=== PATIENT | female | born 1980 | race Caucasian/White ===

== ENCOUNTER 2017-02-04 15:21 | Observation (INO) | payer OTHER ==
[2017-02-04 15:21] VITALS: BMI 34.4
--- NOTE | 2017-02-04 16:19 | ED PDOC ---
HPI: Abdomen Chief Complaint (Provider): abdominal pain History Per: Patient History/Exam Limitations: no limitations Onset/Duration Of Symptoms: Days (x2 weeks) Current Symptoms Are (Timing): Intermittent Episodes Associated Symptoms: Fever, Nausea. denies: Vomiting, Diarrhea, Constipation Abnormal Vaginal Bleeding: No <Funmilayo Nobles - Last Filed: 02/04/17 16:16> <Mary Herman - Last Filed: 02/04/17 17:18> Time Seen by Provider: 02/04/17 15:45 Chief Complaint (Nursing): Abdominal Pain Additional Complaint(s): Ryne Freitas is a 36 year old female, with no previous medical history, was sent to the ED be her PMD for the evaluation of abdominal pain with associated symptoms of subjective fevers, dyuria and nausea that is ongoing intermittently for two weeks. Patient denies any vomiting, constipation , diarrhea, hematuria, vaginal discharge/bleeding. She denies taking any medication prior to arrival. PMD: Jean Rollins MD (Funmilayo Nobles) Past Medical History Reviewed: Historical Data, Nursing Documentation, Vital Signs - Medical History PMH: No Chronic Diseases - Surgical History Surgical History: (x 1) - Family History Family History: States: Unknown Family Hx <Funmilayo Nobles - Last Filed: 02/04/17 16:16> <Mary Herman - Last Filed: 02/04/17 17:18> Vital Signs: Last Vital Signs Temp 98.9 F 02/04/17 15:27 Pulse 74 02/04/17 15:27 Resp 16 02/04/17 15:27 BP 125/76 02/04/17 15:27 Pulse Ox 98 02/04/17 16:40 - Home Medications Home Medications: Ambulatory Orders Medication Instructions Recorded Vitamins8 [Classic 1 tab PO DAILY 08/15/15 ] Acetaminophen [Tylenol 325mg tab] 650 mg PO Q6 PRN #0 tab 08/16/15 Insulin Human NPH [Humulin N] 34 units SC DAILY #0 vial 08/16/15 Insulin Human Regular [HumuLIN R] 14 units SC 2000 #0 ml 08/16/15 Multivit/Folic Acid/I 1 tab PO DAILY #0 tab 08/16/15 [] - Allergies Allergies/Adverse Reactions: Allergies Allergy/AdvReac Type Severity Reaction Status Date / Time No Known Allergies Allergy Verified 02/04/17 15:27 Review of Systems ROS Statement: Except As Marked, All Systems Reviewed And Found Negative Constitutional: Positive for: Fever (subjective) Gastrointestinal: Positive for: Nausea, Abdominal Pain. Negative for: Vomiting , Diarrhea, Constipation Genitourinary Female: Positive for: Dysuria. Negative for: Hematuria, Vaginal Discharge, Vaginal Bleeding <Funmilayo Nobles - Last Filed: 02/04/17 16:16> Physical Exam - Reviewed Nursing Documentation Reviewed: Yes Vital Signs Reviewed: Yes - Physical Exam Appears: Positive for: Well, Non-toxic, No Acute Distress Skin: Positive for: Normal Color, Warm, Dry Cardiovascular/Chest: Positive for: Regular Rate, Rhythm Respiratory: Positive for: Normal Breath Sounds Gastrointestinal/Abdominal: Positive for: Soft, Tenderness (RLQ), Rebound (RLQ) . Negative for: Distended, Guarding Neurologic/Psych: Positive for: Alert, Oriented <Funmilayo Nobles - Last Filed: 02/04/17 16:16> - ECG O2 Sat by Pulse Oximetry: 98 (RA) Pulse Ox Interpretation: Normal <Funmilayo Nobles - Last Filed: 02/04/17 16:16> - Laboratory Results Result Diagrams: 02/04/17 16:48 <Mray Herman - Last Filed: 02/04/17 17:18> Medical Decision Making <NoblesFunmilayo F - Last Filed: 02/04/17 16:16> <Mary Herman - Last Filed: 02/04/17 17:18> Medical Decision Making: Initial Impression: Appendicitis, Ovarian torsion, Ovarian cyst Inital Plan: * CT Abd/Pelvis IV contrast * Labs * Urine * Urine dipstick * PTT * PT * Morphine 2Mg IV * IV NS 1,000 ml at 1,000 mls/hr * Ondansetron 4Mg IV * Urine analysis * Ultrasound pelvis/transvag * Re-eval Scribe Attestation: Documented by Funmilayo Larsen, acting as a scribe for Funmilayo Nobles MD. Provider Scribe Attestation: All medical record entries made by the Scribe were at my direction and personally dictated by me. I have reviewed the chart and agree that the record accurately reflects my personal performance of the history, physical exam, medical decision making, and the department course for this patient. I have also personally directed, reviewed, and agree with the discharge instructions and disposition. (Funmilayo Nobles)
[2017-02-04] MEDS ORDERED: Sodium Chloride 0.9% 1,000 ML IV STA (16:23)
[2017-02-04 16:50] LABS: RBC URINE 2 /hpf (0-3); URINE BACTERIA RARE (<OCC); URINE BILIRUBIN NEGATIVE (NEGATIVE); URINE BLOOD NEGATIVE (NEGATIVE); URINE COLOR STRAW (YELLOW); URINE GLUCOSE (UA) NEG (Normal); URINE KETONE NEGATIVE (NEGATIVE); URINE LEUKOCYTE ESTERASE NEG Leu/uL (Negative); URINE PROTEIN NEGATIVE (NEGATIVE); URINE UROBILINOGEN 0.2-1.0 mg/dL (0.2-1.0); WBC URINE 1 /hpf (0-5)
[2017-02-04 16:57] LABS: BASO # 0.1 K/uL (0.0-0.2); BASO % 0.7 % (0.0-2.0); EOS # 0.2 K/uL (0.0-0.7); EOS % 1.7 % (0.0-4.0); HEMATOCRIT 38.2 % (34.0-47.0); LYMPH # 1.7 K/uL (1.0-4.3); LYMPH % 17.6 % (20.0-40.0); MEAN CELL VOLUME 78.6 fl (81.0-99.0); MEAN CORPUSCULAR HGB CONC 31.8 g/dL (33.0-37.0); MEAN PLATELET VOLUME 9.3 fl (7.2-11.7); MONO # 0.5 K/uL (0.0-0.8); MONO % 5.5 % (0.0-10.0); NEUT % 74.5 % (50.0-75.0); RED CELL DISTRIBUTION WIDTH 15.1 % (11.5-14.5); WHITE BLOOD COUNT 9.4 K/uL (4.8-10.8)
[2017-02-04] MEDS ORDERED: Sodium Chloride 0.9% 50 ML IV ONE (17:20)
[2017-02-04] MEDS ORDERED: Iohexol 300 100 ML IJ ONE (17:20)
--- NOTE | 2017-02-04 17:25 | ED PDOC ---
- Laboratory Results Result Diagrams: 02/04/17 16:48 02/04/17 16:48 - ECG O2 Sat by Pulse Oximetry: 98 (RA) Pulse Ox Interpretation: Normal Medical Decision Making Medical Decision Making: Patient signed out to provider at 0500 pending ER work-up and final disposition. Received endorsement from Dr. Nobles. - Scribe Attestation Documented by Eli Nichols acting as a scribe for Mary Herman MD. Provider Attestation All medical record entries made by the Scribe were at my direction and personally dictated by me. I have reviewed the chart and agree that the record accurately reflects my personal performance of the history, physical exam, medical decision making, and the department course for this patient. I have also personally directed, reviewed, and agree with the discharge instructions and disposition.
[2017-02-04 17:26] LABS: ALB/GLOB RATIO 1.5 (1.0-2.1); ALKALINE PHOSPHATASE 55 U/L (38-126); ALT/SGPT 37 U/L (9-52); AST/SGOT 26 U/L (14-36); BILIRUBIN,TOTAL 0.1 mg/dl (0.2-1.3); BLOOD UREA NITROGEN 9 mg/dl (7-17); CALCIUM 9.4 mg/dL (8.4-10.2); CARBON DIOXIDE 25 mmol/L (22-30); CHLORIDE 104 mmol/L (98-107); GFR AFRICAN-AMERICAN > 60; GLUCOSE,RANDOM 137 mg/dL (65-105); PARTIAL THROMBOPLASTIN TIME 29.9 Seconds (25.6-37.1); SODIUM 141 mmol/l (132-148); TOTAL PROTEIN 7.4 G/DL (6.3-8.2)
[2017-02-04 17:28] LABS: POTASSIUM 3.3 MMOL/L (3.6-5.0)
[2017-02-04] MEDS ORDERED: K-Lyte 25meq EF Tab PO ONE ×2 (17:38→18:43)
--- NOTE | 2017-02-04 18:29 | CT ---
PROCEDURE: CT Abdomen and Pelvis with contrast HISTORY: RLQ pain COMPARISON: None. TECHNIQUE: Contrast dose: 95 cc Omnipaque 300 Radiation dose: Total exam DLP = 762.26 mGy-cm. This CT exam was performed using one or more of the following dose reduction techniques: Automated exposure control, adjustment of the mA and/or kV according to patient size, and/or use of iterative reconstruction technique. FINDINGS: LOWER THORAX: Unremarkable. LIVER: Unremarkable. No gross lesion or ductal dilatation. GALLBLADDER AND BILE DUCTS: Unremarkable. PANCREAS: Unremarkable. No gross lesion or ductal dilatation. SPLEEN: Unremarkable. ADRENALS: Unremarkable. No mass. KIDNEYS AND URETERS: Unremarkable. No hydronephrosis. No solid mass. VASCULATURE: Unremarkable. No aortic aneurysm. BOWEL: Dilated proximal small bowel disproportionate to that seen distally. The transition point is in the right upper quadrant. No focal lesion or mass is identified. There is no evidence of intussusception. There are no secondary signs of closed loop obstruction. APPENDIX: Normal appendix. PERITONEUM: Trace free fluid identified in the pelvis/cul de sac. LYMPH NODES: Unremarkable. No enlarged lymph nodes. BLADDER: Unremarkable. REPRODUCTIVE: Unremarkable. BONES: No acute fracture. OTHER FINDINGS: None. IMPRESSION: Early, incomplete mid small bowel obstruction. Normal appendix.
--- NOTE | 2017-02-04 18:55 | US ---
HISTORY: RIGHT pelvic pain COMPARISON: CT abdomen and pelvis with contrast performed 02/04/17 TECHNIQUE: Transvaginal pelvic ultrasound FINDINGS: Examination markedly limited due to bowel gas. UTERUS: Measures 7.8 x 5.0 x 6.0 cm. Retroverted. ENDOMETRIUM: Measures 7 mm in diameter. CERVIX: Small fluid within the cervical canal. RIGHT OVARY: Not visualized. LEFT OVARY: Measures 2.3 x 1.9 x 1.7 cm. Blood flow is demonstrated. FREE FLUID: No significant free fluid noted. OTHER FINDINGS: None. IMPRESSION: Examination markedly limited due to bowel gas. The right ovary is not visualized. Small fluid within the cervix.
--- NOTE | 2017-02-04 19:13 | CP.PCM.HP ---
History of Present Illness - History of Present Illness History of Present Illness: CC: stomach pain HPI 36 year old female no past medical history, s/p 2 C/Sections presents with a 2 week history of on and off abdominal pain that acutely worsened today. Pain is mod to severe 8/10 waxing and waning, non radiating, sharp in nature and associated with nausea but no emesis. Last BM was yesterday, small, soft. Patient is comfortable at this time. CT showed partial SBO, surgery was consulted in ER. Dr. Rollins is PCP. ROS: per HPI, 12 systems reviewed and negative PMD: Dr. Rollins PMH: denies PSH: CSection FH: DM.HTN, LYMPHOMA SH: denies tobacco, ETOH, IVDU Allergies: NKDA Vitals: reviewed and currently stable Exam: GEN: WDWN, alert, cooperative HEENT: NCAT, PERRL, EOMI NECK: supple, no JVD, no lymphadenopathy CARDIAC: +S1S2 RRR LUNG: CTAB No WRR ABD: SOFT NT ND BSX4 NO MASSES NO HSM EXT: +pedal pulses, equal strength NEURO: AAOx3 SKIN warm, dry PSYCH normal mood, normal affect Labs: 02/04/17 16:48 02/04/17 16:48 Rads: CT abd / pel: early incomplete SBO Transvaginal US: small fluid in cervix Assessment and Plan: 36 year old female no past medical history, s/p 2 C/Sections presents with a 2 week history of on and off abdominal pain that acutely worsened today. Pain is mod to severe 8/10 waxing and waning, non radiating, sharp in nature and associated with nausea but no emesis. Last BM was yesterday, small, soft. Patient is comfortable at this time. CT showed partial SBO, surgery was consulted in ER. Partial SBO NPO D5 1/2 NS + 20 KCl @ 125cc/hr Surgery consult in ER serial abdominal exams zofran for nausea monitor watchfully for worsening of symptoms Hypokalemia 3.3 repleted in ER repeat BMP and Mg in AM VTE ppx Present on Admission - Present on Admission Any Indicators Present on Admission: No Past Patient History - Past Social History Smoking Status: Never Smoked - GENITOURINARY/GYNECOLOGICAL Other/Comment: miscarriage - PSYCHIATRIC Hx Substance Use: No - SURGICAL HISTORY Hx Section: Yes Other/Comment: d&c Meds Allergies/Adverse Reactions: Allergies Allergy/AdvReac Type Severity Reaction Status Date / Time No Known Allergies Allergy Verified 02/04/17 15:27 Results - Vital Signs Recent Vital Signs: Last Vital Signs Temp 98.9 F 02/04/17 15:27 Pulse 74 02/04/17 15:27 Resp 16 02/04/17 15:27 BP 125/76 02/04/17 15:27 Pulse Ox 98 02/04/17 18:50 - Labs Result Diagrams: 02/04/17 16:48 02/04/17 16:48 Labs: Laboratory Results - last 24 hr 02/04/17 02/04/17 02/04/17 16:42 16:48 16:48 WBC 9.4 RBC 4.86 Hgb 12.1 Hct 38.2 MCV 78.6 L MCH 25.0 L MCHC 31.8 L RDW 15.1 H Plt Count 294 MPV 9.3 Neut % (Auto) 74.5 Lymph % (Auto) 17.6 L [place] % (Auto) 5.5 Eos % (Auto) 1.7 Baso % (Auto) 0.7 Neut # 7.0 Lymph # 1.7 [place] # 0.5 Eos # 0.2 Baso # 0.1 PT INR APTT Sodium 141 Potassium 3.3 L Chloride 104 Carbon Dioxide 25 Anion Gap 15 BUN 9 Creatinine 0.6 L Est GFR ( Amer) > 60 Est GFR (Non-Af Amer) > 60 Random Glucose 137 H Calcium 9.4 Total Bilirubin 0.1 L AST 26 ALT 37 Alkaline Phosphatase 55 Total Protein 7.4 Albumin 4.5 Globulin 3.0 Albumin/Globulin Ratio 1.5 Urine Color Straw Urine Clarity Clear Urine pH 6.0 Ur Specific [place] 1.011 Urine Protein Negative Urine Glucose (UA) Neg Urine Ketones Negative Urine Blood Negative Urine Nitrate Negative Urine Bilirubin Negative Urine Urobilinogen 0.2-1.0 Ur Leukocyte Esterase Neg Urine RBC (Auto) 2 Urine Microscopic WBC 1 Ur Squamous Epith Cells 2 Urine Bacteria Rare 02/04/17 16:48 WBC RBC Hgb Hct MCV MCH MCHC RDW Plt Count MPV Neut % (Auto) Lymph % (Auto) [place] % (Auto) Eos % (Auto) Baso % (Auto) Neut # Lymph # [place] # Eos # Baso # PT 10.9 INR 1.0 APTT 29.9 Sodium Potassium Chloride Carbon Dioxide Anion Gap BUN Creatinine Est GFR ( Amer) Est GFR (Non-Af Amer) Random Glucose Calcium Total Bilirubin AST ALT Alkaline Phosphatase Total Protein Albumin Globulin Albumin/Globulin Ratio Urine Color Urine Clarity Urine pH Ur Specific [place] Urine Protein Urine Glucose (UA) Urine Ketones Urine Blood Urine Nitrate Urine Bilirubin Urine Urobilinogen Ur Leukocyte Esterase Urine RBC (Auto) Urine Microscopic WBC Ur Squamous Epith Cells Urine Bacteria
[2017-02-04] MEDS ORDERED: Potassium Ch 20mEq in D5-1/2NS 1,000 ML IV SCH (19:15)
[2017-02-04] MEDS: Potassium CL 10mEq/100ml 100 ML IVPB SCH ×3 (21:00→23:00)
[2017-02-05] MEDS: Potassium CL 10mEq/100ml 100 ML IVPB SCH
--- NOTE | 2017-02-05 00:54 | CP.PCM.CON ---
History of Present Illness - History of Present Illness History of Present Illness: Surgery Consult: Dr. Nieves Pt is a 36F with PMHx of HTN who presents to [facility] with complaints of intermittent abdominal pain for the last 2 weeks. Pt states pain is located in the RLQ and she went to see her PMD yesterday who sent her to the ER to r/o appendicitis. Pt also admits to associated nausea with chills & sweats. Denies having similar pain in the past. In the ER, pt had a CT abdomen/pelvis which shows partial small bowel obstruction. Surgery consulted to evaluate. Currently, pt states she feels better and pain has improved. She states her last BM was yesterday and admits to flatus. Denies vomiting, fevers, chest pain or SOB. PMHx: HTN PSHx: x 2, axillary cyst excision SocialHx: denies smoking, EtOH/drugs NKDA Review of Systems - Review of Systems All systems: reviewed and no additional remarkable complaints except (as per HPI ) Past Patient History - Past Medical History & Family History Past Medical History?: Yes - Past Social History Smoking Status: Never Smoked - CARDIAC Hx Cardiac Disorders: Yes (HTN) Hx Hypertension: Yes - PULMONARY Hx Respiratory Disorders: No - NEUROLOGICAL Hx Neurological Disorder: No - HEENT Hx HEENT Problems: No - RENAL Hx Chronic Kidney Disease: No - ENDOCRINE/METABOLIC Hx Endocrine Disorders: Yes Other/Comment: Gestatonal DM in 2014, denies taking anything for DM currently - HEMATOLOGICAL/ONCOLOGICAL Hx Blood Disorders: No Hx AIDS: No Hx Human Immunodeficiency Virus (HIV): No - INTEGUMENTARY Hx Dermatological Problems: No - MUSCULOSKELETAL/RHEUMATOLOGICAL Hx Musculoskeletal Disorders: No Hx Falls: No - GASTROINTESTINAL Hx Gastrointestinal Disorders: No - GENITOURINARY/GYNECOLOGICAL Hx Genitourinary Disorders: No - PSYCHIATRIC Hx Psychophysiologic Disorder: No Hx Substance Use: No - SURGICAL HISTORY Hx Surgeries: Yes Hx Section: Yes (x2) Other/Comment: Left breast/armpitt lumpectomy,. TMJ surgery 5 mos ago - ANESTHESIA Hx Anesthesia: Yes Hx Anesthesia Reactions: No Meds Allergies/Adverse Reactions: Allergies Allergy/AdvReac Type Severity Reaction Status Date / Time No Known Allergies Allergy Verified 02/04/17 15:27 - Medications Medications: Current Medications Enoxaparin Sodium (Lovenox) 40 mg SC DAILY DOROTEO PRN Reason: Protocol Potassium Chloride/Dextrose/Sod Cl (Potassium Chl 20 Meq In D5-1/2ns) 1,000 mls @ 125 mls/hr IV .Q8H DOROTEO Stop: 02/05/17 19:08 Ondansetron HCl (Zofran Inj) 4 mg IVP Q6 PRN PRN Reason: Nausea/Vomiting Physical Exam - Constitutional Appears: Well, No Acute Distress - Head Exam Head Exam: ATRAUMATIC, NORMOCEPHALIC - Eye Exam Eye Exam: Normal appearance - ENT Exam ENT Exam: Mucous Membranes Moist - Respiratory Exam Respiratory Exam: NORMAL BREATHING PATTERN - Cardiovascular Exam Cardiovascular Exam: RRR - GI/Abdominal Exam GI & Abdominal Exam: Hypoactive Bowel Sounds, Soft, Tenderness (RLQ). absent: Distended, Guarding, Rebound - Rectal Exam Rectal Exam: Deferred - Extremities Exam Extremities exam: Negative for: tenderness - Neurological Exam Neurological exam: Alert, Oriented x3 - Skin Skin Exam: Dry, Intact, Warm Results - Vital Signs Recent Vital Signs: Last Vital Signs Temp 98.5 F 02/05/17 00:30 Pulse 113 H 02/05/17 00:30 Resp 20 02/05/17 00:30 BP 113/68 02/05/17 00:30 Pulse Ox 93 L 02/05/17 00:30 - Labs Result Diagrams: 02/04/17 16:48 02/04/17 16:48 Labs: Laboratory Results - last 24 hr 02/04/17 02/04/17 02/04/17 16:42 16:48 16:48 WBC 9.4 RBC 4.86 Hgb 12.1 Hct 38.2 MCV 78.6 L MCH 25.0 L MCHC 31.8 L RDW 15.1 H Plt Count 294 MPV 9.3 Neut % (Auto) 74.5 Lymph % (Auto) 17.6 L [place] % (Auto) 5.5 Eos % (Auto) 1.7 Baso % (Auto) 0.7 Neut # 7.0 Lymph # 1.7 [place] # 0.5 Eos # 0.2 Baso # 0.1 PT INR APTT Sodium 141 Potassium 3.3 L Chloride 104 Carbon Dioxide 25 Anion Gap 15 BUN 9 Creatinine 0.6 L Est GFR ( Amer) > 60 Est GFR (Non-Af Amer) > 60 Random Glucose 137 H Calcium 9.4 Total Bilirubin 0.1 L AST 26 ALT 37 Alkaline Phosphatase 55 Total Protein 7.4 Albumin 4.5 Globulin 3.0 Albumin/Globulin Ratio 1.5 Urine Color Straw Urine Clarity Clear Urine pH 6.0 Ur Specific [place] 1.011 Urine Protein Negative Urine Glucose (UA) Neg Urine Ketones Negative Urine Blood Negative Urine Nitrate Negative Urine Bilirubin Negative Urine Urobilinogen 0.2-1.0 Ur Leukocyte Esterase Neg Urine RBC (Auto) 2 Urine Microscopic WBC 1 Ur Squamous Epith Cells 2 Urine Bacteria Rare 02/04/17 16:48 WBC RBC Hgb Hct MCV MCH MCHC RDW Plt Count MPV Neut % (Auto) Lymph % (Auto) [place] % (Auto) Eos % (Auto) Baso % (Auto) Neut # Lymph # [place] # Eos # Baso # PT 10.9 INR 1.0 APTT 29.9 Sodium Potassium Chloride Carbon Dioxide Anion Gap BUN Creatinine Est GFR ( Amer) Est GFR (Non-Af Amer) Random Glucose Calcium Total Bilirubin AST ALT Alkaline Phosphatase Total Protein Albumin Globulin Albumin/Globulin Ratio Urine Color Urine Clarity Urine pH Ur Specific [place] Urine Protein Urine Glucose (UA) Urine Ketones Urine Blood Urine Nitrate Urine Bilirubin Urine Urobilinogen Ur Leukocyte Esterase Urine RBC (Auto) Urine Microscopic WBC Ur Squamous Epith Cells Urine Bacteria - Imaging and Cardiology CT scan - abdomen Status: Image reviewed by me, Report reviewed by me Assessment & Plan - Assessment and Plan (Free Text) Assessment: 36F with partial SBO Plan: - keep NPO - pt not vomiting and very comfortable; if starts to vomit will consider NGT - serial abdominal exams - d/w Dr. Ezequiel Valdez, PGY-2 Surgery
[2017-02-05 07:05] LABS: HEMATOCRIT 33.8 % (34.0-47.0); MEAN CELL VOLUME 78.7 fl (81.0-99.0); MEAN CORPUSCULAR HEMOGLOBIN 25.2 pg (27.0-31.0); RED CELL DISTRIBUTION WIDTH 15.3 % (11.5-14.5)
[2017-02-05] MEDS ORDERED: Potassium Chloride 20 mEq ER Tab PO ONE (07:38)
[2017-02-05 07:45] LABS: BLOOD UREA NITROGEN 8 mg/dl (7-17); CALCIUM 8.7 mg/dL (8.4-10.2); CARBON DIOXIDE 26 mmol/L (22-30); CHLORIDE 106 mmol/L (98-107); GFR AFRICAN-AMERICAN > 60; GLUCOSE,RANDOM 111 mg/dL (65-105); MAGNESIUM 1.9 MG/DL (1.6-2.3); POTASSIUM 4.5 MMOL/L (3.6-5.0); SODIUM 140 mmol/l (132-148)
[2017-02-05 07:58] VITALS: O2SAT 98
[2017-02-05] MEDS ORDERED: Enoxaparin 40 mg Syringe SC SCH (09:00)
--- NOTE | 2017-02-05 13:47 | CP.PCM.DIS ---
Provider - Provider Date of Admission: 02/04/17 16:23 Attending physician: Brenda Huerta DO Primary care physician: Dr. Rollins Consults: Surgery consult Time Spent in preparation of Discharge (in minutes): 15 Hospital Course - Lab Results Lab Results: Most Recent Lab Values WBC 8.0 K/uL (4.8-10.8) 02/05/17 05:25 RBC 4.30 Mil/uL (3.80-5.20) 02/05/17 05:25 Hgb 10.8 g/dL (12.0-16.0) L 02/05/17 05:25 Hct 33.8 % (34.0-47.0) L 02/05/17 05:25 MCV 78.7 fl (81.0-99.0) L 02/05/17 05:25 MCH 25.2 pg (27.0-31.0) L 02/05/17 05:25 MCHC 32.0 g/dL (33.0-37.0) L 02/05/17 05:25 RDW 15.3 % (11.5-14.5) H 02/05/17 05:25 Plt Count 263 K/uL (130-400) 02/05/17 05:25 MPV 9.3 fl (7.2-11.7) 02/04/17 16:48 Neut % (Auto) 74.5 % (50.0-75.0) 02/04/17 16:48 Lymph % (Auto) 17.6 % (20.0-40.0) L 02/04/17 16:48 [place] % (Auto) 5.5 % (0.0-10.0) 02/04/17 16:48 Eos % (Auto) 1.7 % (0.0-4.0) 02/04/17 16:48 Baso % (Auto) 0.7 % (0.0-2.0) 02/04/17 16:48 Neut # 7.0 K/uL (1.8-7.0) 02/04/17 16:48 Lymph # 1.7 K/uL (1.0-4.3) 02/04/17 16:48 [place] # 0.5 K/uL (0.0-0.8) 02/04/17 16:48 Eos # 0.2 K/uL (0.0-0.7) 02/04/17 16:48 Baso # 0.1 K/uL (0.0-0.2) 02/04/17 16:48 PT 10.9 Seconds (9.8-13.1) 02/04/17 16:48 INR 1.0 (0.9-1.2) 02/04/17 16:48 APTT 29.9 Seconds (25.6-37.1) 02/04/17 16:48 Sodium 140 mmol/l (132-148) 02/05/17 05:25 Potassium 4.5 MMOL/L (3.6-5.0) 02/05/17 05:25 Chloride 106 mmol/L (98-107) 02/05/17 05:25 Carbon Dioxide 26 mmol/L (22-30) 02/05/17 05:25 Anion Gap 12 (10-20) 02/05/17 05:25 BUN 8 mg/dl (7-17) 02/05/17 05:25 Creatinine 0.7 mg/dL (0.7-1.2) 02/05/17 05:25 Est GFR ( Amer) > 60 02/05/17 05:25 Est GFR (Non-Af Amer) > 60 02/05/17 05:25 Random Glucose 111 mg/dL (65-105) H 02/05/17 05:25 Calcium 8.7 mg/dL (8.4-10.2) 02/05/17 05:25 Magnesium 1.9 MG/DL (1.6-2.3) 02/05/17 05:25 Total Bilirubin 0.1 mg/dl (0.2-1.3) L 02/04/17 16:48 AST 26 U/L (14-36) 02/04/17 16:48 ALT 37 U/L (9-52) 02/04/17 16:48 Alkaline Phosphatase 55 U/L (38-126) 02/04/17 16:48 Total Protein 7.4 G/DL (6.3-8.2) 02/04/17 16:48 Albumin 4.5 g/dL (3.5-5.0) 02/04/17 16:48 Globulin 3.0 gm/dL (2.2-3.9) 02/04/17 16:48 Albumin/Globulin Ratio 1.5 (1.0-2.1) 02/04/17 16:48 Urine Color Straw (YELLOW) 02/04/17 16:42 Urine Clarity Clear (Clear) 02/04/17 16:42 Urine pH 6.0 (5.0-8.0) 02/04/17 16:42 Ur Specific [place] 1.011 (1.003-1.030) 02/04/17 16:42 Urine Protein Negative mg/dL (NEGATIVE) 02/04/17 16:42 Urine Glucose (UA) Neg mg/dL (Normal) 02/04/17 16:42 Urine Ketones Negative mg/dL (NEGATIVE) 02/04/17 16:42 Urine Blood Negative (NEGATIVE) 02/04/17 16:42 Urine Nitrate Negative (NEGATIVE) 02/04/17 16:42 Urine Bilirubin Negative (NEGATIVE) 02/04/17 16:42 Urine Urobilinogen 0.2-1.0 mg/dL (0.2-1.0) 02/04/17 16:42 Ur Leukocyte Esterase Neg [place]/uL (Negative) 02/04/17 16:42 Urine RBC (Auto) 2 /hpf (0-3) 02/04/17 16:42 Urine Microscopic WBC 1 /hpf (0-5) 02/04/17 16:42 Ur Squamous Epith Cells 2 /hpf (0-5) 02/04/17 16:42 Urine Bacteria Rare (<OCC) 02/04/17 16:42 - Hospital Course Hospital Course: 36 year old female with no past medical history, s/p 2 C/Sections presented with a 2 week history of on and off abdominal pain that acutely worsened today. Pain is mod to severe 8/10 waxing and waning, non radiating, sharp in nature and associated with nausea but no emesis. Last BM was yesterday, small, soft. CT showed partial SBO, surgery was consulted , patient admitted to med/surg and kept NPO initially. At present hemodynamically stable, with no abdominal pian, nausea or vomiting , tolerating diet, passing flatus Will discharge patient home 1. Dx ;Partial small bowel obstruction - resolved Discharge Exam - Head Exam Head Exam: ATRAUMATIC, NORMAL INSPECTION, NORMOCEPHALIC - Eye Exam Eye Exam: EOMI, Normal appearance, PERRL Pupil Exam: NORMAL ACCOMODATION - ENT Exam ENT Exam: Mucous Membranes Moist, Normal Exam - Neck Exam Neck exam: Full Rom, Normal Inspection - Respiratory Exam Respiratory Exam: Clear to PA & Lateral, NORMAL BREATHING PATTERN. absent: Rales, Rhonchi, Wheezes - Cardiovascular Exam Cardiovascular Exam: REGULAR RHYTHM, RRR, +S1, +S2. absent: JVD - GI/Abdominal Exam GI & Abdominal Exam: Normal Bowel Sounds, Soft. absent: Distended, Guarding, Rebound, Tenderness - Rectal Exam Rectal Exam: Deferred - Extremities Exam Extremities exam: normal capillary refill, normal inspection, pedal pulses present - Back Exam Back exam: NORMAL INSPECTION - Neurological Exam Neurological exam: Alert, CN II-XII Intact, Oriented x3, Reflexes Normal - Psychiatric Exam Psychiatric exam: Normal Affect, Normal Mood - Skin Skin Exam: Dry, Intact, Normal Color, Warm Discharge Plan - Follow Up Plan Condition: STABLE Disposition: HOME/ ROUTINE Patient education suggested?: Yes Instructions: Bowel Obstruction (DC) Referrals: Jean Rollins MD [Staff Provider] -
[2017-02-05 16:16] VITALS: BP 112/76; PULSE 72; RESP 18; TEMP 98.5
== END 2017-02-05 17:03 | disposition home or self-care (01) ==
LOC: H.ER 15:21 → H.EROBSV 16:23 → H.ERHOLD 16:23 → H.MEDSURG1 20:30
PROVIDERS: ADMIT Student in an Organized Health Care Education/Training Program; ATTEND Student in an Organized Health Care Education/Training Program
DX: K56.60 Unspecified intestinal obstruction (principal); E11.9 Type 2 diabetes mellitus without complications; E87.6 Hypokalemia; I10 Essential (primary) hypertension; Z83.3 Family history of diabetes mellitus; O03.9 Complete or unspecified spontaneous abortion without complication